=== PATIENT | male | born 1975 | race Caucasian/White ===

== ENCOUNTER → 2016-12-09 | Outpatient (CLI) | payer OTHER ==
[~2016-12-09] MED LIST: IOPAMIDOL (ISOVUE-300) 100 ML BTL ONE
== END ==
LOC: FIMAGING 10:43
PROVIDERS: ATTEND Nurse Practitioner Adult Health
DX: R10.31 Right lower quadrant pain (principal); N20.0 Calculus of kidney; R93.5 Abnormal findings on diagnostic imaging of other abdominal regions, including retroperitoneum; Z87.442 Personal history of urinary calculi
CPT/HCPCS: Q9967

== ENCOUNTER → 2016-12-12 | Outpatient (CLI) | payer OTHER | LOC: BMCIMAGING 08:32 | PROVIDERS: ATTEND Internal Medicine | DX: M51.36 Other intervertebral disc degeneration, lumbar region (principal); M51.37 Other intervertebral disc degeneration, lumbosacral region; N20.0 Calculus of kidney; K59.00 Constipation, unspecified ==